=== PATIENT | female | born 2000 | race Hispanic/Latino ===

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

== ENCOUNTER 2019-01-14 15:45 | Emergency (ER) | payer OTHER, SELFPAY ==
[~2019-01-14] VITALS: Ht 160 cm; Wt 78.8 kg
[2019-01-14 16:41] LABS: BASO # 0.1 10^3/uL (0.0-0.2); BASO % 0.6 % (0.0-1.0); EOS # 0.5 10^3/uL (0.0-0.5); EOS % 5.9 % (0.0-3.0); HEMATOCRIT 33.1 % (36.0-47.0); HEMOGLOBIN 10.3 g/dl (12.0-15.5); LYMPH # 1.9 10^3/uL (1.5-5.0); LYMPH % 21.9 % (24.0-44.0); MEAN CORPUSCULAR HEMOGLOBIN 25.1 pg (27.0-33.0); MEAN CORPUSCULAR HGB CONC 31.1 g/dl (32.0-36.5); MEAN CORPUSCULAR VOLUME 80.7 fl (80.0-96.0); MONO # 0.9 10^3/uL (0.0-0.8); MONO % 10.5 % (0.0-5.0); NEUTROPHILS # 5.2 10^3/uL (1.5-8.5); NEUTROPHILS % 60.9 % (36.0-66.0); PLATELET COUNT, AUTOMATED 290 10^3/uL (150-450); WHITE BLOOD COUNT 8.5 10^3/uL (4.0-10.0)
[2019-01-14] MEDS ORDERED: ACETAMINOPHEN 325 MG TAB PO ONE (17:30)
[2019-01-14 17:44] VITALS: BP 132/77
== END 2019-01-14 18:07 | disposition home or self-care (01) ==
LOC: M ED 15:45
DX: Z34.00 Encounter for supervision of normal first pregnancy, unspecified trimester (principal); R10.2 Pelvic and perineal pain

== ENCOUNTER → 2019-01-16 | Outpatient (CLI) | payer OTHER | LOC: M LAB 16:25 | PROVIDERS: ATTEND Physician Assistant | DX: O99.89 Other specified diseases and conditions complicating pregnancy, childbirth and the puerperium (principal); Z3A.00 Weeks of gestation of pregnancy not specified ==

== ENCOUNTER → 2019-01-23 | Outpatient (CLI) | payer OTHER | LOC: M LRY 11:57 | DX: Z53.9 Procedure and treatment not carried out, unspecified reason (principal) ==

== ENCOUNTER 2019-05-22 19:06 | Outpatient (CLI) | payer OTHER ==
[~2019-05-22] VITALS: Ht 162.6 cm; Wt 85.1 kg
[2019-05-22 19:25] VITALS: BP 123/77
[2019-05-22] MEDS ORDERED: PRENTAB77 PO (19:40)
--- NOTE | 2019-05-22 21:12 | IPNPDOC ---
Text Note Date of Service The patient was seen on 05/22/19. NOTE Triage Note Mary is a 19yo with SIUP at approx 22wk who presents tonight for a few complaints. Firstly, she bent over last night and immediately felt pain in her lower back, specifically on the left side. She notes it has been present since, improved slightly and then today she exacerbated it by bending over again to lay her friend's child down to sleep. She states the pain then shot down in her left leg (not just down the buttock into the back of the leg, but into the front of the leg as well, down to her knee). She also notes a change in her vaginal discharge, seems increased and thick/white, sometimes yellow. Lastly, since injuring her back she has felt cramping in her lower abdomen. Feels movement. No loss of fluid, no vaginal bleeding. No f/c/n/v/CP/SOB. 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 Benign exam, vitals wnl. NO e/o PTL. NO e/o vaginal infection. No ctx on toco. Reassuring status. Plan: -recommended warm compress/heating pad to lower back, tylenol prn -recommended light stretching/yoga -good hydration -keep next routine OB appt later this month -return precautions discussed -if back pain does not improve over this next week, consider physical therapy and/or referral for osteopathic manipulation -safe for discharge home MD DULCE Son,Justin, I+O VSJustin, I+O Vital Signs Date Time Temp Pulse Resp B/P (MAP) Pulse Ox O2 Delivery O2 Flow Rate FiO2 05/22/19 19:55 99.1 05/22/19 19:25 89 18 123/77 (92) Marilyn Bazzi MD May 22, 2019 21:12
== END 2019-05-22 21:09 | disposition home or self-care (01) ==
LOC: M LDO 19:06
PROVIDERS: ATTEND Advanced Practice Midwife
DX: O26.892 Other specified pregnancy related conditions, second trimester (principal); M54.5 Low back pain; Z3A.22 22 weeks gestation of pregnancy
CPT/HCPCS: G0378; G0463

== ENCOUNTER 2019-09-02 14:03 | Emergency (ER) | payer OTHER ==
[~2019-09-02] VITALS: Ht 162.6 cm; Wt 95.5 kg
[~2019-09-02 14:03] MED LIST changes: +PRENTAB77 PO
[2019-09-02 14:06] VITALS: BP 125/79
[2019-09-02] MEDS ORDERED: CLIN150C14 PO (14:20)
[2019-09-17] MEDS ORDERED: KEFL500C17 PO (11:55)
== END 2019-09-02 14:33 | disposition home or self-care (01) ==
LOC: M ED 14:03
DX: L03.317 Cellulitis of buttock (principal); Z3A.37 37 weeks gestation of pregnancy; Z79.899 Other long term (current) drug therapy

== ENCOUNTER 2019-09-03 14:21 | Emergency (ER) | payer OTHER ==
[~2019-09-03] VITALS: Ht 162.6 cm; Wt 96.3 kg
[~2019-09-03 14:21] MED LIST changes: +CLIN150C14 PO
[2019-09-03 14:22] VITALS: BP 121/70
[2019-09-17] MEDS ORDERED: KEFL500C17 PO (11:55)
== END 2019-09-03 15:20 | disposition home or self-care (01) ==
LOC: M ED 14:21
DX: L02.32 Furuncle of buttock (principal)

== ENCOUNTER 2019-09-08 13:51 | Emergency (ER) | payer OTHER ==
[~2019-09-08] VITALS: Ht 162.6 cm; Wt 96.8 kg
[2019-09-08 15:53] VITALS: BP 119/72
[2019-09-17] MEDS ORDERED: KEFL500C17 PO (11:55)
== END 2019-09-08 15:54 | disposition home or self-care (01) ==
LOC: M ED 13:51
DX: L02.32 Furuncle of buttock (principal)

== ENCOUNTER 2019-09-27 23:18 | Inpatient (IN) | payer OTHER ==
[~2019-09-27] VITALS: Ht 162.6 cm; Wt 98.4 kg
[~2019-09-27 23:18] MED LIST changes: +KEFL500C17 PO
[2019-09-27 23:36] VITALS: BP 126/72
[2019-09-28] VITALS (61 sets, daily range): BP systolic 87–143; BP diastolic 50–89
[2019-09-28] MEDS ORDERED: PENICILLIN G POTASSIUM IV 5 MU in D5W MINI-BAG PLUS 100 ML IV STA (01:35)
[2019-09-28] MEDS ORDERED: LACTATED RINGER'S 1000 ML IV ONE (01:45)
[2019-09-28] MEDS: LR 1,000 ML IV SCH ×2 (01:55→10:28)
[2019-09-28 01:57] LABS: HEMATOCRIT 33.3 % (36.0-47.0); HEMOGLOBIN 10.5 g/dl (12.0-15.5); MEAN CORPUSCULAR HEMOGLOBIN 25.1 pg (27.0-33.0); MEAN CORPUSCULAR HGB CONC 31.5 g/dl (32.0-36.5); MEAN CORPUSCULAR VOLUME 79.5 fl (80.0-96.0); PLATELET COUNT, AUTOMATED 242 10^3/uL (150-450); RED BLOOD COUNT 4.19 10^6/uL (4.00-5.40); WHITE BLOOD COUNT 13.1 10^3/uL (4.0-10.0)
[2019-09-28] MEDS: PENICILLIN G POTASSIUM IV 2.5 MU in IV 1 EA IV SCH ×4 (05:58→18:06)
[2019-09-28] MEDS ORDERED: FENTANYL 2MCG/ML ROPIVACAINE 0.2% IN 0.9% NACL 100ML IVBAG As Ordered ONE ×2 (06:11→13:46)
[2019-09-28] MEDS ORDERED: FENTANYL/ROPIVACAINE/NACL BAG 100 ML EPIDURAL SCH (06:45)
[2019-09-28] MEDS ORDERED: EPIDURAL COMMENT XX SCH (06:45)
[2019-09-28] MEDS ORDERED: diphenhydrAMINE 50MG/ML VIAL (J1200) IV PRN (06:45)
[2019-09-28] MEDS ORDERED: NALOXONE INJ 0.4MG/1ML VIAL (J2310 PER 1MG) IV PRN (06:45)
[2019-09-28] MEDS ORDERED: EPIDURAL/PCA KEYS XX PRN (06:45)
[2019-09-28] MEDS ORDERED: REFRIGERATOR IV KEYS XX PRN (06:45)
[2019-09-28] MEDS ORDERED: ONDANSETRON 4MG/2ML VIAL IV PRN (06:45)
[2019-09-28] MEDS ORDERED: OXYTOCIN DRIP 30 UNITS in IV 1 EA IV SCH ×2 (10:00→18:43)
--- NOTE | 2019-09-28 10:44 | HPE ---
DATE OF ADMISSION: 09/28/2019 19-year-old, 2, para 0, last menstrual period (LMP) 12/16/2018, estimated date of confinement (EDC) 09/21/2019, at 41 and 1 weeks of gestation with contractions. No loss of fluid or vaginal bleeding. RISK FACTORS: She is post-term, group B streptococcus (GBS) positive with sexually transmitted disease (STD) positive, now test of cure negative. PAST HISTORY: 11/2018 spontaneous . Labs are O+, HIV negative, RPR negative, rubella immune. Varicella nonimmune. Urine negative. Gonorrhea negative. Chlamydia was positive, test of cure was negative. 1-hour glucose was 129. GBS is positive. Blood pressure is 126/72, respirations 18, pulse 80, temperature 98.3. Urine is 1.020, pH 6, trace of protein, trace of leukocytes. On examination, she appears distressed. Category 1 strip. Cervix is 2 cm, posterior, 60% effaced, -3 station. The rest examination is unremarkable. She is normocephalic, atraumatic. Neck full range of motion. Pupils equal and reactive to light. Chest is clear bilaterally bases. No wheezes or rhonchi. No costovertebral angle (CVA) tenderness. Abdomen soft, four quadrant bowel sounds are noted. Appropriate symphysis fundus height. She has no rashes, lesions or pruritus. No arthralgia or myalgia. No complaint of joint pain. No complaint of cough, wheeze, shortness breath, or dyspnea on exertion. No bruising. No bleeding. Neuro complete. No incontinency or frequency. No nausea, vomiting, diarrhea, or constipation. No heat or cold or diabetic issues. 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 Past medical and surgical unremarkable. Family history noncontributory. She does not smoke, drink, abuse drugs. No domestic violence, has good support. She has NO KNOWN ALLERGIES. We discussed consent for vaginal delivery, which is through the vagina, with a possible use of forceps or vacuum devices if needed for maternal or indications. These are devices that can assist with vaginal delivery when normal pushing efforts cannot achieve delivery on their own or when delivery is needed in emergency for baby's well-being. Medications may be required to induce or augment labor in order achieve vaginal delivery. An episiotomy may be required to help baby deliver vaginally. May also require repair of lacerations, tears the vagina or vulva that are created or caused by delivery. In some cases emergencies can arise that require emergency section. The indication will be discussed with you by the provider and this is delivered through your abdomen with an incision, which may be safer for mom and baby than continuing labor and only performed when clinically indicated. Risk of vaginal delivery include not limited to bleeding, infection, injury to the vagina, pelvic structures, injury to baby, damage to the uterus, reaction to anesthesia, uterine rupture, risk of hysterectomy for life-threatening bleeding or even . Medications used to induce or augment labor may increase risk of infection, uterine tachysystole, uterine rupture, heart rate abnormalities, need for emergency section or possible hysterectomy, and bleeding. heart rate abnormalities may require emergency section. There is increased risk of perineal vaginal lacerations, risk of bowel or incontinence, and risk of injury to baby with bruising, scratches, hematomas of the head or intracranial bleed. The patient expressed understanding of same. Our plan of care is to hydrate the patient, GBS prophylaxis and epidural as needed.
[2019-09-28] MEDS ORDERED: MORPHINE 2 MG/ML 1ML VIAL (J2270) IV ONE (13:00)
[2019-09-28] MEDS ORDERED: ePHEDrine SULFATE 25 MG/5 ML(5MG/ML) SYRINGE IV PRN (15:15)
[2019-09-28] MEDS ORDERED: IBUPROFEN 800 MG TAB PO PRN (18:45)
[2019-09-28] MEDS ORDERED: DOCUSATE SODIUM 100 MG CAP PO PRN (18:45)
[2019-09-28] MEDS ORDERED: MOM 30ML SUSPENSION UDC PO PRN (18:45)
[2019-09-28] MEDS ORDERED: ACETAMINOPHEN 500 MG TAB PO PRN (18:45)
[2019-09-28] MEDS ORDERED: ANUSOL HC CREAM 30GM TOP PRN (18:45)
[2019-09-28] MEDS ORDERED: DIBUCAINE 1% OINTMENT 30GM TOP PRN (18:45)
[2019-09-28] MEDS ORDERED: MEASLES,MUMPS,RUBELLA VACCINE INJ (MMR-II) (90707) SC SCH (18:45)
[2019-09-28] MEDS ORDERED: ACETAMINOPHEN TAB 650MG DOSE (2X325MG) PO PRN (18:45)
[2019-09-28] MEDS ORDERED: METHYLERGONOVINE MALEATE 0.2 MG TAB PO PRN (18:45)
[2019-09-28] MEDS ORDERED: RHOGAM 300 MCG (1500 IU) INJ (J2790) IM SCH (18:45)
--- NOTE | 2019-09-28 18:57 | IPNPDOC ---
Obstetrical Progress Note Date of Service Sep 28, 2019 Subjective Doing well without any issues. Comfortable following epidural. Cervical exam. She is complete, complete +1 station. Plan to begin pushing. Objective Vital Signs Date Time Temp Pulse Resp B/P (MAP) Pulse Ox O2 Delivery O2 Flow Rate FiO2 09/28/19 18:41 80 16 129/78 (95) 09/28/19 17:52 98.0 Assessment Heart Rate Tracing: Category I Tocometer Frequency: regular Sterile Vaginal Examination Dilation: complete Effacement (%): 100% Station: +1 Cervical Consistency: Soft Cervical Position: Anterior Assessment and Plan Age: 19 : 2 Livin Status: Reassuring Anticipate: Vaginal Delivery JAKE QUICK MD. Sep 28, 2019 18:57
--- NOTE | 2019-09-28 19:48 | DNPDOC ---
[facility] Delivery Note Delivery Note DATE OF DELIVERY: 09/28/2019 TIME OF : 192 GENDER: Female. APGARS:, 9 and 9. WEIGHT: 3320 grams or 7 pounds 5 ounces. LACERATIONS: Left labial ANESTHESIA: Epidural. ESTIMATED BLOOD LOSS: 300ml COUNTS: 5 laparotomy sponges accounted for prior to after delivery and 1 sharp removed from delivery filed. DELIVERY NOTE: On 09/28/2019 at 1923, Mrs. Lind a 19-year-old 2 now para 1 had a spontaneous vaginal delivery of viable female , Apgars, 9 and 9. Weight was 3320 g or 7 lbs. 5 oz. Head was delivered occiput anterior (OA), followed by delivery of shoulders and corpus. was handed to mom with a good cry. Cord was clamped times two and was cut by the father of baby under my direction. Placenta was then drained and delivered grossly intact. A premixed bag of 500 mL of normal saline with 30 units of Pitocin was then bolused along with uterine massage until the uterus was firm. On inspection there was a left labial laceration that was repair with 3-0 Vicryl. On reinspection, cervix, vagina, perineum was grossly intact and hemostatic. Mom and baby in recovery on stable condition. The couples decided to remain in daughter, JAKE Pemberton MD. Sep 28, 2019 19:48
[2019-09-29 00:20] VITALS: BP 115/74
[2019-09-29 06:00] VITALS: BP 145/58
[2019-09-29] MEDS: PRENATAL VITAMINS CHEWABLE TABLET PO SCH (07:29)
[2019-09-29] MEDS: IBUPROFEN 600MG TAB PO PRN ×2 (07:29→15:23)
--- NOTE | 2019-09-29 08:24 | IPNPDOC ---
Progress Note Date of Service: Sep 29, 2019 Day#: 1 Progress Note SUBJECT: Doing well without complaints. Ambulating, voiding and pain is well-c ontrolled. Reports minimal lochia. +breast feeding OBJECTIVE: VITAL SIGNS: Within normal limits, afebrile. Alert and oriented times three. Abdomen: Fundus firm at U-2. Soft, NTTP. Ext: neg calf tenderness. ASSESSMENT: day #1 status post normal spontaneous vaginal delivery. Recovering in stable condition. PLAN: 1. Continue routine care 2. Discharge plans for tomorrow VS, I&O, 24H, Fishbone Vital Signs/I&O Vital Signs Date Time Temp Pulse Resp B/P (MAP) Pulse Ox O2 Delivery O2 Flow Rate FiO2 09/29/19 06:00 98.0 94 16 145/58 (87) 98 Room Air I&O- Last 24 Hours up to 6 AM 09/29/19 06:00 Intake Total 5596 ml Output Total 2050 ml Balance 3546 ml JAKE QUICK MD. Sep 29, 2019 08:24
[2019-09-29 18:00] VITALS: BP 115/65
[2019-09-30 05:38] VITALS: BP 118/56
--- NOTE | 2019-09-30 08:57 | IPNPDOC ---
Progress Note Date of Service: Sep 30, 2019 Day#: 2 Progress Note SUBJECT: Mary is a 19yo G2 now P1011 s/p on 28SEP2019. Doing well without complaints. Ambulating, voiding and pain is well-controlled. Reports minimal lochia. +breast feeding. OBJECTIVE: VITAL SIGNS: Within normal limits, afebrile. Alert and oriented times three. Abdomen: Fundus firm at U-2. Ext: neg calf tenderness. Scant lochia ASSESSMENT: PP Day #2, normal involution, stable and progressing well. without issue. PLAN: 1. Discharge to home today. 2. Tylenol and Motrin for pain. 3. Encourage breast feeding and ambulation. 4. Declines BC at this time; will discuss at PP visit 5. Routine PP visit in 6 weeks in clinic. 6. Discussed return precautions at length. VS, I&O, 24H, Fishbone Vital Signs/I&O Vital Signs Date Time Temp Pulse Resp B/P (MAP) Pulse Ox O2 Delivery O2 Flow Rate FiO2 09/30/19 05:38 97.4 79 118/56 (76) 09/29/19 18:00 17 97 Room Air FITZ MARROQUIN CNM Sep 30, 2019 08:57
--- NOTE | 2019-09-30 09:00 | OBDS ---
[facility] Obstetrical Discharge Sum. Obstetrical Discharge Summary Date: Sep 30, 2019 Time: 08:57 : 2 Term: 1 Pre-term: 0 Abortions: 1 Livin Sex: Female Weight: pounds (7), ounces, grams (3320) A/P, Post Course List any complications Admission diagnosis: Labor Discharge diagnosis: Delivered Condition at Discharge: Stable Discharge Instructions: Nothing in vagina for 6 weeks; rest, hydration, frequent ; return precautions Activity: Increase as tolerated Diet: Regular Medications: Tylenol and Motrin Follow-up: 6-8 week routine PP visit at [place] [facility]. FITZ MARROQUIN CNM Sep 30, 2019 09:00
[2019-09-30] MEDS: PRENATAL VITAMINS CHEWABLE TABLET PO SCH (11:56)
== END 2019-09-30 13:20 | disposition home or self-care (01) | DRG 807 ==
LOC: M LDO 23:18 → M LDI 09-28 01:36 → M OBS 09-28 23:05
PROVIDERS: ADMIT Obstetrics & Gynecology; ATTEND Obstetrics & Gynecology
PROC: 10E0XZZ Delivery of Products of Conception, External Approach (ICD-10-PCS; principal; 2019-09-28)
PROC: 0HQ9XZZ Repair Perineum Skin, External Approach (ICD-10-PCS; 2019-09-28)
DX: O48.0 Post-term pregnancy (principal); Z37.0 Single live birth; O99.824 Streptococcus B carrier state complicating childbirth; Z3A.41 41 weeks gestation of pregnancy; O70.0 First degree perineal laceration during delivery

== ENCOUNTER 2019-12-19 13:09 | Emergency (ER) | payer OTHER ==
[~2019-12-19] VITALS: Ht 162.6 cm; Wt 86.4 kg
[2019-12-19 13:09] VITALS: BP 131/86
[2019-12-19] MEDS ORDERED: AZIT500T5 PO (14:02)
== END 2019-12-19 14:13 | disposition home or self-care (01) ==
LOC: M ED 13:09
DX: J02.0 Streptococcal pharyngitis (principal)

== ENCOUNTER 2020-09-03 01:21 | Outpatient (CLI) | payer OTHER, SELFPAY ==
[~2020-09-03] VITALS: Ht 162.6 cm; Wt 99.2 kg
[~2020-09-03 01:21] MED LIST changes: +AZIT500T5 PO; -CLIN150C14 PO; +CLIN150C15 PO
[2020-09-03 01:39] VITALS: BP 135/81
[2020-09-03 02:39] VITALS: BP 107/58
--- NOTE | 2020-09-03 04:15 | IPNPDOC ---
Text Note Date of Service The patient was seen on 09/03/20. NOTE 09/03/2020 0400 hr 20 yo LMP 11/26/19 EDC 09/08/2020 at 39 .3 weeks GBS positive, having contractions q 2 minutes no vaginal bleeding no vaginal loss , good kick. RISK SHORT INTERVAL GBS POSITIVE PLAN INITIAL EVALUATION CERVIX POSTERIOR 2 CM OFT -3 STATION . 1 HOUR LATER NO CHANGE CERVIX CATAGORY 1 STRIP SPACED CONTRACTIONS. ULTRASOUND VERTEX LIMB MOTION, LEVI 3 QUADRANTS 10.80 CM SMALLEST POCKET 3.0 CM . DISCHARGED UNDELIVERED APPOINTMENT TUESDAY WITH [facility] OB VS,Fishbone, I+O VS, Fishbone, I+O Vital Signs Date Time Temp Pulse Resp B/P (MAP) Pulse Ox O2 Delivery O2 Flow Rate FiO2 09/03/20 01:39 97.9 90 16 135/81 (99) Zeeshan Aggarwal MD September 03, 2020 04:15
== END 2020-09-03 04:00 | disposition home or self-care (01) ==
LOC: M LDO 01:21
PROVIDERS: ATTEND Obstetrics & Gynecology
DX: O47.1 False labor at or after 37 completed weeks of gestation (principal); Z3A.39 39 weeks gestation of pregnancy
CPT/HCPCS: 59025; 76815; G0378; G0463

== ENCOUNTER 2020-09-10 07:15 | Inpatient (IN) | payer OTHER ==
[2020-09-10] VITALS (30 sets, daily range): BP systolic 115–148; BP diastolic 56–92
[~2020-09-10] VITALS: Ht 162.6 cm; Wt 98.6 kg
[2020-09-10] MEDS ORDERED: LR 1,000 ML IV SCH ×2 (08:10)
[2020-09-10] MEDS ORDERED: LACTATED RINGER'S 1000 ML IV STA (08:10)
[2020-09-10] MEDS ORDERED: OXYTOCIN DRIP 30 UNITS in IV 1 EA IV PRN (08:10)
[2020-09-10] MEDS ORDERED: OXYTOCIN DRIP 30 UNITS in IV 1 EA IV SCH (08:10)
[2020-09-10] MEDS ORDERED: PENICILLIN G POTASSIUM IV 5 MU in D5W MINI-BAG PLUS 100 ML IV STA (08:10)
--- NOTE | 2020-09-10 08:50 | HPEPDOC ---
Obstetrical History & Physical General Date of Admission Sep 10, 2020 at 07:15 History of Present Illness 20 chano [id number] @40+2 presenting for IOL at term, GBS + , O+, states irregular contractions, denies bleeding, LOF, states reassuring FM Chief Complaint: Contractions, term, Induction of labor, Group B Positive Information Provided By: Patient Age: 20 : 3 Term: 1 Pre-term: 0 Abortions: 1 Livin Care Care: Good Care Dating Final EDC: September 08, 2020 Final EDC for Daily Update: September 08, 2020 Final EDC by: 1st trimester (US) 1st Trimester Date: Feb 08, 2020 Weeks + Days: 40 (+2) Estimated Date of Confinement: September 08, 2020 EGA at Admission: 40 (+2) Antepartum Course Diagnos(e)s maternal obesity, close interval , low lying placenta (resolved by third trimester) Height (inches): 64 Pre- weight (lbs.): 180 Admission Weight (lbs.): 217 Change in Weight (lbs.): 37 Past Medical History Past Obstetrical History #1: Date of Delivery: Nov 16, 2018 Gestation: 9 (SAB) Past Obstetrical History #2: Past Obstetrical History: Multigravida Date of Delivery: Sep 28, 2019 Gestation: 41 Type of Delivery: Spontaneous Vaginal Del. 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: History of STD (Chlamydia treated in 2019) Past Medical History Medical History obesity Surgical History: Denies/None Family History Significant Family History: No pertinent family hx Social History Marital Status: Family situation: Spouse/partner home Psychosocial History: No pertinent psych hx * Smoker: non-smoker Alcohol: Denies Abuse Violence Screening Have you been hit/kicked/slapp: No Have you been sexually assault: No Imunizations Tdap status: current Allergies Coded Allergies: No Known Allergies (Unverified , 04/29/17) Medications Scheduled Pnv,Calcium 72/Iron/Folic Acid ( Plus Tablet) 1 Each Tablet, 1 TAB PO DAILY Physical Examination Physical Examination GENERAL: Alert and oriented times three. BREAST: . ABDOMEN: Gravid and non-tender to touch. FETUS: Is vertex (VTX) by sterile vaginal examination (SVE), fetus is vertex (VTX) by [place]. HEART RATE: Regular rate and rhythm. LUNGS: Clear to auscultation (CTA). EXTREMITIES: No edema. No clonus. Deep tendon reflexes (DTRs) + 2. Laboratory Data 24H LABS Laboratory Tests 2 09/10/20 07:25: Serology Scanned Report Hepatitis B Testing Pertinent Laboratoy Data Blood Type: O+ RBC Antibody Screen: Negative HIV: Negative Hepatitis B: Negative Rubella: Immune Varicella: Nonreactive Chlamydia/Gonorrhea: Negative Group B Streptococcus: Positive Cystic Fibrosis: Negative Glucose Tolerance Test: 99 Anatomy Ultrasound Placenta Location: Posterior Normal Anatomy: Yes Placenta Previa: No (lowlying placenta at routine anatomy was resolved by third trimester f/u ) Vaginal Examination Dilation: 5 cm Effacement: 80% Station: -2 Cervical Consistency: Soft Presentation: Cephalic presentation Position: Vertex (occiput) Assessment Heart Rate (FHR): 130 Variability: Moderate Accelerations: Positive Decelerations: None Tocometer Contractions: Yes Frequency: irregular Duration: greater than 60 seconds Strength: palpated as mild Multi-drug resistant Organism: No history of MDRO Assessment/Plan Assessment Mary is a 20-year-old (G)3 para (P)1-0-1-1 at 40+2 weeks by 9+4-week ultrasound. Presents to Labor and Delivery (L&D) for IOL. 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 Diet: clear liquid. Group B Streptococcus (GBS) positive. Labs and intravenous (IV) per unit protocol. Counseled on Pitocin and augmentation of labor. Lactated Ringers (LR): Bolus 1000 mL, then at 125 mL/hr. Continuous efm x2. Initiate pitocin and titrate per protocol. Consider AROM as appropriate. May have epidural when desired. Anticipate [normal spontaneous delivery ()]. C-S as appropriate. SOPHIE BROOKE CNM Sep 10, 2020 08:50
[2020-09-10 09:56] LABS: HEMOGLOBIN 10.4 g/dl (12.0-15.5); MEAN CORPUSCULAR HEMOGLOBIN 24.9 pg (27.0-33.0); MEAN CORPUSCULAR HGB CONC 30.6 g/dl (32.0-36.5); MEAN CORPUSCULAR VOLUME 81.5 fl (80.0-96.0); PLATELET COUNT, AUTOMATED 229 10^3/uL (150-450); RED BLOOD COUNT 4.17 10^6/uL (4.00-5.40); WHITE BLOOD COUNT 11.1 10^3/uL (4.0-10.0)
[2020-09-10] MEDS ORDERED: FENTANYL 2MCG/ML ROPIVACAINE 0.2% IN 0.9% NACL 100ML IVBAG As Ordered ONE (10:51)
[2020-09-10] MEDS ORDERED: ePHEDrine SULFATE 25 MG/5 ML(5MG/ML) SYRINGE IV PRN (11:00)
[2020-09-10] MEDS ORDERED: FENTANYL/ROPIVACAINE/NACL BAG 100 ML EPIDURAL SCH (11:00)
[2020-09-10] MEDS ORDERED: NALOXONE INJ 0.4MG/1ML VIAL (J2310 PER 1MG) IV PRN (11:00)
[2020-09-10] MEDS ORDERED: EPIDURAL/PCA KEYS XX PRN (11:00)
[2020-09-10] MEDS ORDERED: REFRIGERATOR IV KEYS XX PRN (11:00)
[2020-09-10] MEDS ORDERED: EPIDURAL COMMENT XX SCH (11:00)
[2020-09-10] MEDS ORDERED: LACTATED RINGER'S 1000 ML IV PRN (11:00)
[2020-09-10] MEDS ORDERED: ONDANSETRON 4MG/2ML VIAL IV PRN (11:00)
[2020-09-10] MEDS ORDERED: diphenhydrAMINE 50MG/ML VIAL (J1200) IV PRN (11:00)
[2020-09-10] MEDS ORDERED: PENICILLIN G POTASSIUM IV 2.5 MU in IV 1 EA IV SCH (13:00)
--- NOTE | 2020-09-10 13:37 | IPNPDOC ---
Obstetrical Progress Note Date of Service Sep 10, 2020 Subjective Pt states feeling comfortable after epidural anesthesia Objective Vital Signs Date Time Temp Pulse Resp B/P (MAP) Pulse Ox O2 Delivery O2 Flow Rate FiO2 09/10/20 12:22 71 18 127/57 (80) 09/10/20 11:55 97.8 Assessment Heart Rate (FHR): 120 Variability: Moderate Accelerations: Positive Decelerations: None Heart Rate Tracing: Category I Tocometer Contractions: Yes Frequency: regular (q 2-3 min) Duration: greater than 60 seconds Strength: palpated as moderate, resting tone palp/soft Sterile Vaginal Examination Dilation: 7 cm Effacement (%): 90% Station: -2 Cervical Consistency: Soft Cervical Position: Middle Postion/Presentation: Cephalic presentation Assessment and Plan Age: 20 : 2 Term: 1 Pre-term: 0 Abortions: 0 Livin EGA at Admission: 40 (+2) Status: Reassuring Group B Streptococcus: Positive Anticipate: Vaginal Delivery Additional Comments LR @125ml/hr, continuous efm x2, continue pitocin augmentation and titrate per protocol, monitor for change in or maternal status, evaluate for change as indicated, anticipate vaginal delivery SOPHIE RBOOKE CNM Sep 10, 2020 13:37
--- NOTE | 2020-09-10 13:55 | IPNPDOC ---
Obstetrical Progress Note Date of Service Sep 10, 2020 Objective Vital Signs Date Time Temp Pulse Resp B/P (MAP) Pulse Ox O2 Delivery O2 Flow Rate FiO2 09/10/20 12:22 71 18 127/57 (80) 09/10/20 11:55 97.8 Assessment Heart Rate (FHR): 120 Variability: Minimal Accelerations: None Decelerations: Early Heart Rate Tracing: Category II Tocometer Frequency: regular (q1 min) Assessment and Plan Status: Reassuring Group B Streptococcus: Positive Anticipate: Vaginal Delivery Additional Comments Pitocin decreased from 6mu to 3mu. Continue to monitor for change in or maternal status, anticipate vaginal delivery. SOPHIE BROOKE CNM Sep 10, 2020 13:55
--- NOTE | 2020-09-10 15:06 | IPNPDOC ---
Obstetrical Progress Note Date of Service Sep 10, 2020 Subjective Pt states feeling pressure more constantly, desires to be checked Objective Vital Signs Date Time Temp Pulse Resp B/P (MAP) Pulse Ox O2 Delivery O2 Flow Rate FiO2 09/10/20 13:54 81 18 135/74 (94) 09/10/20 11:55 97.8 Assessment Heart Rate (FHR): 120 Variability: Moderate Accelerations: Positive Decelerations: Other (breaks in monitoring noted, external monitor repositioned) Tocometer Contractions: Yes Frequency: every 1-3 min. (on 2mu pitocin) Duration: greater than 60 seconds Strength: palpated as moderate, resting tone palp/soft Sterile Vaginal Examination Dilation: 8 cm Effacement (%): 90% Station: -2 Cervical Consistency: Soft Cervical Position: Middle Postion/Presentation: Cephalic presentation Assessment and Plan Age: 20 : 2 Term: 1 Pre-term: 0 Abortions: 0 Livin EGA at Admission: 40 (+2) Status: Reassuring Group B Streptococcus: Positive Anticipate: Vaginal Delivery Additional Comments LR@125ml/hr, continuous efm x2, continue pitocin augmentation and titrate per protocol, encourage frequent maternal positioning, evaluate for change as indicated, anticipate vaginal delivery SOPHIE BROOKE CNM Sep 10, 2020 15:06
[2020-09-10] MEDS ORDERED: DOCUSATE SODIUM 100MG CAPSULE PO PRN (16:05)
[2020-09-10] MEDS ORDERED: RHOGAM 300 MCG (1500 IU) INJ (J2790) IM SCH (16:05)
[2020-09-10] MEDS ORDERED: MEASLES,MUMPS,RUBELLA VACCINE INJ (MMR-II) (90707) SC SCH (16:05)
[2020-09-10] MEDS ORDERED: METHYLERGONOVINE MALEATE 0.2 MG TAB PO PRN (16:05)
[2020-09-10] MEDS ORDERED: DIBUCAINE 1% OINTMENT 30GM TOP PRN (16:05)
--- NOTE | 2020-09-10 16:18 | DNPDOC ---
[facility] Delivery Note Delivery Note DATE OF DELIVERY: 10Sep2020 PREDELIVERY DIAGNOSIS: 40-2/7 weeks' gestation and labor. POST DELIVERY DIAGNOSIS: Delivered. PROCEDURE: Spontaneous vaginal delivery. SUCCESS COACH: Elizabeth Brooke CNM ANESTHESIA: epidural. ESTIMATED BLOOD LOSS: 100 mL. FINDINGS: 7 pound 14 ounce male Gil, Score 8/9, no nuchal cord. DELIVERY SUMMARY: Patient is a 20-year-old 2 now para 2-0-0-2 who was admitted to labor and delivery for augmentation of labor on 10Sep2020. Pt stated pressure and urge to push and was found to be C/C/+2. Brisk progress was made to in OA presentation with restitution to YAZ. No nuchal cord was noted after delivery of the head. Left anterior shoulder delivered easily followed by the posterior shoulder and corpus. The infant was placed immediately on the maternal abdomen where he was dried and stimulated to cry. Pitocin infusion was initiated per protocol. The cord was clamped x2 after pulsation ceased and cut by the FOB. Cord blood was collected and sent for testing. The placenta delivered spontaneously in Michel presentation with minimal bleeding. The cervix and vagina were swept with no clots located. Examination revealed an intact perineum with a hemostatic periurethral abrasion which did not require repair. Mother and baby entered the recovery phase in stable condition, skin to skin, with initiated. ELIZABETH BROOKE CNM Sep 10, 2020 16:18
[2020-09-10] MEDS ORDERED: SLF 3 ML SYR IV PRN (18:45)
[2020-09-10] MEDS: IBUPROFEN 800 MG TAB PO PRN (19:50)
[2020-09-10] MEDS: SLF 3 ML SYR IV SCH (20:57)
[2020-09-10] MEDS: ACETAMINOPHEN TAB 650MG DOSE (2X325MG) PO PRN (22:55)
[2020-09-11] MEDS: IBUPROFEN 800 MG TAB PO PRN ×2 (03:56→13:35)
[2020-09-11 06:00] VITALS: BP 137/59
--- NOTE | 2020-09-11 07:16 | IPNPDOC ---
Progress Note Date of Service: Sep 11, 2020 Day#: 1 Progress Note SUBJECT: Mrs. Mary Lind is a 20 year-old G3 now P2012 who is PPD#1 s/p an uncomplicated spontaneous vaginal delivery of a male weighing 7 pounds 14 ounces on Tuesday, 10 September 2020. This morning, Mrs. Lind is doing well and is without acute complaints or concerns. She denies pain; has been tolerating a regular diet; is ambulating w/o difficulty; is voiding spontaneously; and is passing flatus. She is breast feeding without issue. Reports lochia is similar to a normal period. She is also . Desires circumcision for her infant. OBJECTIVE: VITAL SIGNS: Within normal limits, afebrile. General: Alert and oriented times three. Lungs: Breath sounds clear to auscultation. Heart rate: Regular rate and rhythm, no murmurs, rubs or gallops. Abdomen: Fundus firm at U-1. Soft, NTTP. ASSESSMENT: Mrs. Lind 20-year-old G3 now P2-0-1-2 status post uncomplicated spontaneous vaginal delivery after undergoing an IOL. She is doing well on day 1. Vitals within normal limits, afebrile, hemodynamically stable with no evidence of infection. PLAN: 1. Tylenol and Motrin for pain. 2. Encourage breast feeding and ambulation. 3. Circumcision for the infant today. 3. Patient has an appointment to discuss permanent sterilization with a Bilateral Tubal Ligation 4. Routine PP visit in 6 weeks in clinic. Coty Wayne., Ph.D. [employer] OB-CREDENTIALING SPECIALIST Staff VS, I&O, 24H, [facility] Vital Signs/I&O Vital Signs Date Time Temp Pulse Resp B/P (MAP) Pulse Ox O2 Delivery O2 Flow Rate FiO2 09/11/20 06:00 98.2 77 20 137/59 (85) 100 Room Air I&O- Last 24 Hours up to 6 AM 09/11/20 06:00 Intake Total 3368.3 ml Output Total 1650 ml Balance 1718.3 ml Laboratory Data 24H LABS Laboratory Tests 2 09/10/20 07:25: Serology Scanned Report Hepatitis B Testing 09/10/20 09:26: Nucleated Red Blood Cells % (auto) 0.0, Syphilis Serology NONREACTIVE CBC/BMP Laboratory Tests 09/10/20 09:26 AMI HOWARD M.D. Sep 11, 2020 07:16
[2020-09-11] MEDS: PRENATAL VITAMINS CHEWABLE TABLET PO SCH (08:54)
[2020-09-11] MEDS: ACETAMINOPHEN TAB 650MG DOSE (2X325MG) PO PRN ×2 (08:55→19:22)
[2020-09-11] MEDS: SLF 3 ML SYR IV SCH (13:35)
[2020-09-11 18:02] VITALS: BP 112/55
[2020-09-12] MEDS: IBUPROFEN 800 MG TAB PO PRN (02:38)
[2020-09-12] MEDS: ACETAMINOPHEN TAB 650MG DOSE (2X325MG) PO PRN (05:10)
[2020-09-12 06:00] VITALS: BP 129/75
[2020-09-12] MEDS ORDERED: ACET1TAB55 PO (07:01)
[2020-09-12] MEDS ORDERED: IBUP80TA PO (07:01)
--- NOTE | 2020-09-12 07:05 | DS.PDOC ---
Discharge Summary General Date of Admission Sep 10, 2020 at 07:15 Date of Discharge Sep 12, 2020 Discharge Summary HOSPITAL COURSE: Ms. Lind is a 20 yo G2 now P2 who underwent an uncomplicated on 10Sep2020 after being admitted for labor augmentation. Her course was unremarkable. On her day of discharge she met all appropriate discharge criteria. She was ambulating, voiding, tolerating a regular diet, and had minimal lochia. DISCHARGE MEDICATIONS: Please see below. ALLERGIES: Please see below. PHYSICAL EXAMINATION ON DISCHARGE: VITAL SIGNS: Please see below. GENERAL: AAOX3, NAD ABDOMINAL EXAMINATION: Fundus firm at U-2. No fundal tenderness EXTREMITIES: No edema PSYCHIATRIC EXAMINATION: Affect appropriate LABORATORY DATA: Please see below. ACTIVITY: Pelvic rest for 6 weeks DIET: Regular DISCHARGE PLAN: Discharge home DISPOSITION: Discharge home on 12Sep2020 DISCHARGE INSTRUCTIONS: 1. Nothing in the vagina for 6 weeks ITEMS TO FOLLOWUP ON ON OUTPATIENT: 1. Call to schedule a visit for 6 weeks post delivery DISCHARGE CONDITION: Stable. TIME SPENT ON DISCHARGE: Greater than 20 minutes. Elvira Martinez DO Vital Signs/I&Os Vital Signs Date Time Temp Pulse Resp B/P (MAP) Pulse Ox O2 Delivery O2 Flow Rate FiO2 09/12/20 06:00 97.9 75 16 129/75 (93) 98 Room Air Discharge Medications Scheduled Pnv,Calcium 72/Iron/Folic Acid ( Plus Tablet) 1 Each Tablet, 1 TAB PO DAILY, (Reported) Scheduled PRN Acetaminophen (Acetaminophen) 325 Mg Tablet, 650 MG PO Q4HP PRN for PAIN LEVEL 1-5 Ibuprofen (Ibuprofen) 800 Mg Tablet, 800 MG PO Q8HP PRN for PAIN LEVEL 6-10 Allergies Coded Allergies: No Known Allergies (Unverified , 04/29/17) ELVIRA MARTINEZ DO Sep 12, 2020 07:05
[2020-09-12] MEDS: PRENATAL VITAMINS CHEWABLE TABLET PO SCH (09:00)
--- NOTE | 2020-09-12 11:16 | IPN ---
PROGRESS NOTE DATE: 09/10/2020 This patient requested circumcision of her male . After discussing risks and benefits of circumcision, the medical and the nonmedical indications, the penile block and aftercare; expressed understanding of penile block, aftercare, and bleeding. Signed the consent form. All questions were answered, 20 minute discussion. We await the clearance by the ladle filler.
== END 2020-09-12 11:19 | disposition home or self-care (01) | DRG 807 ==
LOC: M LDI 07:15 → M OBS 18:27
PROVIDERS: ADMIT Registered Nurse; ATTEND Registered Nurse
PROC: 10E0XZZ Delivery of Products of Conception, External Approach (ICD-10-PCS; principal; 2020-09-10)
DX: O48.0 Post-term pregnancy (principal); Z37.0 Single live birth; Z3A.40 40 weeks gestation of pregnancy; O99.824 Streptococcus B carrier state complicating childbirth; O99.214 Obesity complicating childbirth; E66.9 Obesity, unspecified

== ENCOUNTER 2021-03-11 07:01 | Day surgery (SDC) | payer OTHER ==
[~2021-03-11] VITALS: Ht 162.6 cm; Wt 86.2 kg
[~2021-03-11 07:01] MED LIST changes: +ACET1TAB55 PO; +ACETAMINOPHEN 650 MG SUPP PR ONE; -CLIN150C15 PO; +CLIN150C17 PO; +IBUP80TA PO; +LR 1,000 ML IV ONE; +VITA500C24 PO; +ceFAZolin SOD 2 GM in IV 1 EA IV ONE
--- OUTSIDE RECORDS SUMMARY | 2021-03-11 07:08 | CCD ---
Author Author [facility] Organization [facility] Address Unknown Phone Unavailable Support Name Relationship Address Phone WENDYS Next Of Kin [id number] [place] [address] [place] [address] ROBERTO CARLOS Next Of Kin [address] [place] [address] RENZO NORIEGA Next Of Kin [address] [place] [address] Lana RN-BC, PNP, Jaylene Next Of Kin [address] [place] [address] [place] Next Of Kin [address] [place] [address] LANA HERNANDEZSSICA Next Of Kin [address] [place] [address] MCDONALDS Next Of Kin [address] [place] [address] [place] [address] ELISABET TASH Next Of Kin [address] [place] [address] LANA CASTREJONSSICA Next Of Kin [address] [place] [address] YASMINE TASH Next Of Kin [address] [place] [address] UE Next Of Kin Unknown Unavailable RENZO NORIEGA ECON [address] [place] [address] Unavailable LANA HEARTSSICA ECON [address] [place] [address] Unavailable Re-disclosure Warning The records that you are about to access may contain information from federally-assisted alcohol or drug abuse programs. If such information is present, then the following federally mandated warning applies: This information has been disclosed to you from records protected by federal confidentiality rules (42 CFR part 2). The federal rules prohibit you from making any further disclosure of this information unless further disclosure is expressly permitted by the written consent of the person to whom it pertains or as otherwise permitted by 42 CFR part 2. A general authorization for the release of medical or other information is NOT sufficient for this purpose. The Federal rules restrict any use of the information to criminally investigate or prosecute any alcohol or drug abuse patient.The records that you are about to access may contain highly sensitive health information, the redisclosure of which is protected by Article 27-F of the [facility] Public Health law. If you continue you may have access to information: Regarding HIV / AIDS; Provided by facilities licensed or operated by the [facility] Office of Mental Health; or Provided by the [facility] Office for People With Developmental Disabilities. If such information is present, then the following [facility] mandated warning applies: This information has been disclosed to you from confidential records which are protected by state law. State law prohibits you from making any further disclosure of this information without the specific written consent of the person to whom it pertains, or as otherwise permitted by law. Any unauthorized further disclosure in violation of state law may result in a fine or group home sentence or both. A general authorization for the release of medical or other information is NOT sufficient authorization for further disc losure. Family History Family Member Name Family Member Gender Family Member Status Date o f Status Description Data Source(s) Unknown Female Medications No Information Insurance Providers Payer name Policy type / Coverage type Policy ID Covered constitution party ID Covered constitution party's relationship to sánchez Policy Sánchez Plan Information Medicaid S [id number] S [id number] Managed Care - Community Plan [facility] P [id number] S [id number] [facility] HUMANA [id number] [facility] [id number] SELF PAY O UNAVAILABLE S UNAVAILA BLE [facility] ACTIVE DUTY [id number] [facility] [id number] Managed Care - Community Plan [facility] S UNAVAILABLE S UNAVAILABLE Medicaid P [id number] S [id number] [facility](MCA[facility]) O [id number] S [id number] MEDICAID P [id number] S [id number] MEDICAID [id number] SP [id number] HMO BLUE [id number] SP [id number] SELF PAY UNAVAILABLE UNAVAILA BLE [facility] Hmo Commercial [id number] Self EAST HUMANA [id number] [facility] [id number] [facility] [id number] SP [id number] SELF PAY ONLY [id number] SP [id number] Problems, Conditions, and Diagnoses No Information Surgeries/Procedures No Information Results ID Date Data Source 120 10/23/2020 12:00:00 AM EDT [facility] Name Value Range Interpretation Code Description Data Yissel rce(s) Supporting Document(s) SARS-CoV2 Rapid Antigen Negative [facility] This lab was ordered by [facility] and reported by [facility]. ID Date Data Source [id number] 03/03/2020 03:12:00 PM EST [facility] Name Value Range Interpretation Code Description Data Yissel rce(s) Supporting Document(s) SARS coronavirus 2 RNA [facility] This lab was ordered by [facility] and reported by [facility]. Procedure Social History No Information
[2021-03-11 07:43] LABS: HEMATOCRIT 35.6 % (36.0-47.0); HEMOGLOBIN 10.9 g/dl (12.0-15.5); MEAN CORPUSCULAR HEMOGLOBIN 24.8 pg (27.0-33.0); MEAN CORPUSCULAR HGB CONC 30.6 g/dl (32.0-36.5); MEAN CORPUSCULAR VOLUME 80.9 fl (80.0-96.0); PLATELET COUNT, AUTOMATED 298 10^3/uL (150-450); WHITE BLOOD COUNT 8.6 10^3/uL (4.0-10.0)
[2021-03-11 08:09] LABS: BLOOD UREA NITROGEN 10 MG/DL (7-18); CALCIUM LEVEL 9.1 MG/DL (8.5-10.1); CARBON DIOXIDE LEVEL 28 MEQ/L (21-32); CHLORIDE LEVEL 107 MEQ/L (98-107); CREATININE FOR GFR 0.64 MG/DL (0.55-1.30); GLOMERULAR FILTRATION RATE > 60.0 (>60); GLUCOSE, FASTING 90 MG/DL (70-100); HCG, SERUM QUANTITATIVE < 1.0 MIU/ML; SODIUM LEVEL 140 MEQ/L (136-145)
[2021-03-11] MEDS ORDERED: propofoL 200 MG/20 ML VIAL As Ordered ONE (10:27)
[2021-03-11] MEDS ORDERED: LIDOCAINE 2% 100MG/5ML SDV (FOR ANES.) As Ordered ONE (10:27)
[2021-03-11] MEDS ORDERED: KETOROLAC 60MG 2ML VIAL As Ordered ONE (10:27)
[2021-03-11] MEDS ORDERED: SUGAMMADEX SODIUM 500 MG/5 ML VIAL (BRIDION) As Ordered ONE (10:27)
[2021-03-11] MEDS ORDERED: ONDANSETRON 4MG/2ML VIAL As Ordered ONE (10:27)
[2021-03-11] MEDS ORDERED: dexameTHASONE 4 MG/ML 1ML VIAL (J1100 PER 1MG) As Ordered ONE (10:27)
[2021-03-11] MEDS ORDERED: ROCURONIUM BROMIDE 50 MG/5 ML VIAL As Ordered ONE (10:27)
[2021-03-11] MEDS ORDERED: fentaNYL 100 MCG/2 ML INJECTION (J3010) As Ordered ONE (10:28)
[2021-03-11] MEDS ORDERED: MIDAZOLAM INJ 2MG/2ML VIAL (J2250 PER 1MG) As Ordered ONE (10:28)
[2021-03-11] MEDS ORDERED: BUPIVACAINE HCL 0.5% 10ML VIAL As Ordered ONE (11:13)
[2021-03-11] MEDS ORDERED: ACETAMINOPHEN 650 MG SUPP As Ordered ONE (11:13)
[2021-03-11] MEDS ORDERED: SEVOFLURANE INHAL SOLN 250 ML BTL As Ordered ONE (11:22)
[2021-03-11] MEDS ORDERED: HYDROmorphone HCL 2 MG/ML 1ML VIAL As Ordered ONE (12:00)
[2021-03-11] MEDS ORDERED: LR 1,000 ML IV SCH (13:50)
[2021-03-11] MEDS ORDERED: ONDANSETRON 4MG/2ML VIAL IV PRN (13:50)
[2021-03-11] MEDS ORDERED: HYDROMORPHONE HCL 0.5 MG/ 0.5 ML SYRINGE (J1170 PER 1) IV PRN (13:50)
[2021-03-11] MEDS: fentaNYL 100 MCG/2 ML INJECTION (J3010) IV PRN ×3 (13:54→14:12)
[2021-03-11] MEDS: oxyCODONE 5MG TAB PO PRN ×2 (13:55→14:28)
[2021-03-11 16:00] VITALS: BP 123/63
--- NOTE | 2021-03-18 10:00 | RO ---
OPERATIVE NOTE DATE OF OPERATION: 03/11/2021 PREOPERATIVE DIAGNOSIS: Satisfied parity and missing IUCD. POSTOPERATIVE DIAGNOSIS: Satisfied parity and missing IUCD. PROCEDURE: SURGEON: Zeeshan Aggarwal MD. PRN OCCUPATIONAL THERAPIST: Dr. Ayon for assistance for retraction, extraction, and visualization without which the procedure could not be completed. ANESTHESIA: General plus local anesthetic for intraperitoneal procedures. ESTIMATED BLOOD LOSS: Less than 25 mL. DESCRIPTION OF PROCEDURE: After adequate time out, prepped and draped in the lithotomy position. The bladder was drained for 250 mL of clear urine. A weighted speculum in the vagina and single tooth tenaculum on the anterior lip of the cervix. We were able to visualize the cervix. The IUCD string was visualized and attempted to pull the string. A uterine elevator in the endocervical canal after sounding the uterus to a depth of 12 cm. Reprepping and draping, a small subumbilical incision was made. Veress needle was applied, 3.8 liters of CO2 to a flow rate of 14 to a pressure of 15. Direct entry into the abdomen with a 0 degree camera, 3 mm. On panoramic review of the right upper quadrant, the liver was normal. Gallbladder was apparently distended. Splenic flexure was noted to be normal, and the stomach was collapsed. The uterus itself was quite bulky suggesting adenomyosis. The right tube and the left tube were visualized to the fimbriated end. Both the right and the left ovary were visualized. A 5 mm port was placed on the right side. A 5 mm port was placed on the left side. Then elevating the right tube using the LigaSure, we excised off the right tube securing hemostasis, and that was pulled out through one of the ports and sent off to pathology. On the opposite side again elevating the tube using the LigaSure, we ligated off the tube, and that was sent off to pathology under separate cover. Evaluating, the cul-de-sac appeared to be clear. Again, the uterus was quite bulky. Good hemostasis was secured. We deflated to 4 mm pressure and under direct vision removed the two 5 mm ports and then removed the mainstem port. Subcuticular stitches were placed in all three areas. Marcaine 0.25% 3 mL in each space with using surgical glue. We then went below. Again weighted speculum in the vagina. Removed the uterine elevator. Dilated to a #12. With 0 degree scope, we evaluated and removed the IUCD. We looked at the tissue. Despite the fact that her last period was 03/06/2021 and today is 03/11/2021, she had quite a bit of bunched up endometrium. Curettage of the cavity and that was sent out to pathology under separate cover. 125 mL in and 125 mL out. Uterus was replaced in anatomical position. All instrument and pad counts were correct. Sequentials were removed. Acetaminophen suppository 1300 mg per rectum was placed and then the patient was sent to recovery in good condition. cc: [facility]
== END 2021-03-11 16:00 | disposition home or self-care (01) ==
LOC: M SDC 07:01
PROVIDERS: ATTEND Obstetrics & Gynecology
DX: Z30.2 Encounter for sterilization (principal); Z30.432 Encounter for removal of intrauterine contraceptive device; N85.2 Hypertrophy of uterus
CPT/HCPCS: 36415; 58301; 58558; 58661; 80048; 84702; 85027; 88300; 88302; 88305; J0690; J1100; J1170; J1885; J2250; J2405; J3010